=== PATIENT | male | born 1985 | race Hispanic/Latino ===

== ENCOUNTER 2024-06-23 19:58 | Emergency (ER) | payer SELFPAY ==
[~2024-06-23] VITALS: Ht 165.1 cm; Wt 76.7 kg
[2024-06-23 20:12] VITALS: PULSE 68; RESP 18; TEMP 98.8
[2024-06-23] MEDS: KETOROLAC TROMETHAMINE 30 MG/ML VIAL IM ONE (20:58)
[2024-06-23] MEDS: HYDROCODONE/APAP 5MG-325MG TAB PO ONE ×2 (20:59→22:52)
[2024-06-23] MEDS: BUPIVACAINE HCL 0.25% 10ML MPF VIAL INJ ONE (22:47)
[2024-06-23 22:58] VITALS: BP 141/84; PULSE 68; RESP 18; TEMP 98.8; O2SAT 99
== END 2024-06-23 22:58 | disposition home or self-care (01) ==
LOC: FSED 20:05
DX: K08.89 Other specified disorders of teeth and supporting structures (principal); K02.9 Dental caries, unspecified
CPT/HCPCS: 96372; 99282; J1885